=== PATIENT | female | born 1950 | race Caucasian/White ===

== ENCOUNTER 2016-12-20 05:44 | Day surgery (SDC) | payer BC ==
[2016-12-20] MEDS ORDERED: LACTATED RINGERS 1,000 ML ONE (06:05)
[2016-12-20] MEDS ORDERED: LIDOCAINE 1% 10 ML VIAL INJ ONE (09:00)
[2016-12-20] MEDS ORDERED: PROPOFOL 200 MG/20 ML VIAL IV ONE (09:00)
[2016-12-20] MEDS ORDERED: LACTATED RINGERS 1,000 ML IVS ONE (09:23)
--- NOTE | 2016-12-20 09:41 | OP ---
DATE OF PROCEDURE: 12/20/16 PREOPERATIVE DIAGNOSIS: 1. Gastroesophageal reflux disease and chronic cough. 2. History of serrated adenoma removed in 2014. POSTOPERATIVE DIAGNOSIS: 1. Hiatal hernia. 2. Diverticulosis. PROCEDURE: 1. Esophagogastroduodenoscopy. 2. Colonoscopy. SURGEON: Terrance Reyes MD. COMPLICATIONS: None apparent. BLOOD LOSS: None. MEDICATIONS: Monitored anesthesia care. DESCRIPTION OF PROCEDURE: Informed consent was obtained prior to sedation. The preprocedure cardiopulmonary assessment was satisfactory. The patient was placed in the left lateral decubitus position and was sedated. The tip of the Olympus esophagogastroduodenoscope was inserted in the oropharynx and carefully advanced through the cricopharyngeus into the esophageal lumen. The esophagus was unremarkable without any evidence of Ang's esophagus or esophagitis. The squamocolumnar junction was unremarkable. The patient had a small hiatal hernia. The stomach was otherwise nurse's on direct and retroflexed views. The antrum, body, fundus, cardia and incisura were examined and there was no significant mucosal pathology there.. The duodenum was unremarkable down to the third portion. The scope was then removed from the patient. The patient was rotated 180 degrees. A digital rectal exam was unremarkable. The tip of the Olympus colonoscope was inserted in the rectum and guided over to the cecum. The cecum was identified by locating the ileocecal valve and appendiceal orifice. Prep was good. The mucosa of the cecum, ascending colon, hepatic flexure, transverse colon, splenic flexure, descending colon and sigmoid colon was closely examined. Direct and retroflexed views of the rectum were obtained. No polyps were identified. The patient does have sigmoid diverticulosis. Otherwise, her colonoscopy was unremarkable. RECOMMENDATIONS: 1. Followup with Dr. Fraser. 2. Continue the patient's proton pump inhibitor for her reflux. It does seem to help the cough to some degree and so perhaps there is a reflux component to the cough. 3. She needs followup colonoscopy in 5 years to look for any new polyps. #[id number] cc: Trevor Fraser MD [facility]
[2016-12-20 11:54] VITALS: BP 145/88; TEMP 98; O2SAT 98
== END 2016-12-20 10:25 | disposition home or self-care (01) ==
LOC: AMB 05:44
PROVIDERS: ATTEND Internal Medicine Gastroenterology
DX: K44.9 Diaphragmatic hernia without obstruction or gangrene (principal); Z12.11 Encounter for screening for malignant neoplasm of colon; K57.30 Diverticulosis of large intestine without perforation or abscess without bleeding; K21.9 Gastro-esophageal reflux disease without esophagitis; Z86.010 Personal history of colon polyps; E11.65 Type 2 diabetes mellitus with hyperglycemia; I10 Essential (primary) hypertension; G47.30 Sleep apnea, unspecified; E66.9 Obesity, unspecified; Z79.84 Long term (current) use of oral hypoglycemic drugs; Z79.82 Long term (current) use of aspirin; Z79.899 Other long term (current) drug therapy; Z68.41 Body mass index [BMI] 40.0-44.9, adult
CPT/HCPCS: 00740; 43239; 45378; J3490; J7120

== ENCOUNTER → 2017-03-12 | Outpatient (CLI) | payer MEDICARE | END | disposition home or self-care (01) | LOC: GMAL 11:09 | PROVIDERS: ATTEND Family Medicine | DX: D53.9 Nutritional anemia, unspecified (principal); E55.9 Vitamin D deficiency, unspecified ==

== ENCOUNTER → 2017-06-05 | Outpatient (CLI) | payer MEDICARE | END | disposition home or self-care (01) | LOC: GMAL 10:59 | PROVIDERS: ATTEND Family Medicine | DX: D53.9 Nutritional anemia, unspecified (principal) ==

== ENCOUNTER → 2017-11-01 | Outpatient (CLI) | payer MEDICARE | LOC: GMAL 11:13 | PROVIDERS: ATTEND Family Medicine | DX: D50.9 Iron deficiency anemia, unspecified (principal) ==

== ENCOUNTER → 2017-11-07 | Outpatient (CLI) | payer MEDICARE ==
--- NOTE | 2017-11-09 15:12 | MAM ---
EXAM DESCRIPTION: 3D Screening BILATERAL : Digital Mammography. CLINICAL HISTORY: 67 years Female SCREENING . No complaints. No family history of breast cancer. Childbirth. Postmenopausal. No HRT. COMPARISON: 2-D digital screening bilateral study 03/01/2015.. No prior reports available. TECHNIQUE: Bilateral CC and MLO projection full-field images, 3-D tomosynthesis digital mammographic technique. CAD not utilized. FINDINGS: The breast parenchymal density pattern is: Heterogeneously dense breast tissue, which may obscure small masses. No skin thickening or nipple retraction. Bilateral axillary lymph nodes. Bilateral vascular calcifications. Bilateral solitary parenchymal calcifications. No new focal, stellate mass or density, focal asymmetry , and no suspicious microcalcifications bilaterally. Stable mammograms compared to prior study, taking into account differences in mammographic technique. IMPRESSION: BI-RADS CATEGORY: 2 - BENIGN FINDINGS. FOLLOW UP: Routine digital bilateral screening, one year interval from October 2017. Written communication explaining the IMPRESSION and follow-up, will be mailed to the patient and referring health care provider. According to the [employer], yearly mammograms are recommended starting at age 40 and continuing as long as a woman is in good health. Any breast change noted on a breast self-exam should be reported promptly to the patient's healthcare provider. Breast MRI is recommended for women with an approximately 20-25% or greater lifetime risk of breast cancer, including women with a strong family history of breast or ovarian cancer and women who have been treated for Hodgkin's disease. A negative mammographic report should not delay tissue diagnosis in patients with significant clinical history or physical findings. Extremely dense breast tissue limits the sensitivity of digital mammography. Electronically signed by: Wero Gonsales MD 11/09/2017 3:11 PM CDT
== END ==
LOC: MAMMO 09:10
PROVIDERS: ATTEND Family Medicine
DX: Z12.31 Encounter for screening mammogram for malignant neoplasm of breast (principal)

== ENCOUNTER → 2018-03-04 | Outpatient (CLI) | payer MEDICARE | LOC: GMAL 11:10 | PROVIDERS: ATTEND Family Medicine | DX: D50.9 Iron deficiency anemia, unspecified (principal) ==

== ENCOUNTER → 2018-06-03 | Outpatient (CLI) | payer MEDICARE | LOC: GMAL 10:19 | PROVIDERS: ATTEND Family Medicine | DX: E53.8 Deficiency of other specified B group vitamins (principal); R53.82 Chronic fatigue, unspecified; E55.9 Vitamin D deficiency, unspecified ==

== ENCOUNTER → 2018-09-25 | Outpatient (CLI) | payer MEDICARE | LOC: GMAL 11:21 | PROVIDERS: ATTEND Family Medicine | DX: D50.9 Iron deficiency anemia, unspecified (principal); I10 Essential (primary) hypertension; R73.01 Impaired fasting glucose; E78.2 Mixed hyperlipidemia ==

== ENCOUNTER → 2018-10-11 | Outpatient (CLI) | payer MEDICARE ==
--- NOTE | 2018-10-11 16:12 | US ---
US THYROID CLINICAL STATEMENT: THYROID NODULE. COMPARISON: None TECHNIQUE: Transcutaneous scanning, grayscale and Doppler modes. FINDINGS: Size right thyroid lobe: 5.8 x 1.9 x 1.7 cm Size left thyroid lobe: 4.2 x 1.2 x 1.2 cm Size isthmus: 0.37 cm Estimated total number of nodules greater than or equal to 1 cm: 2. Heterogeneous nodule. Nodule 1: Size: 2.1 x 1.2 x 0.9 cm Location: Right Mid Composition: solid or almost completely solid: 2 points Echogenicity: hypoechoic: 2 points Shape: wider than tall: 0 points Margins: smooth: 0 points Echogenic foci: peripheral calcifications: 2 points ACR Total Points: 6; ACR TI-RADS risk category: TR4 - moderately suspicious nodule. Nodule 2: Size: 1.0 x 1.0 x 0.6 cm Location: Right Mid Composition: solid or almost completely solid: 2 points Echogenicity: hypoechoic: 2 points Shape: wider than tall: 0 points Margins: smooth: 0 points Echogenic foci: none: 0 points ACR Total Points: 4; ACR TI-RADS risk category: TR4 - moderately suspicious nodule. Nodule 3: Size: 0.9 x 0.9 x 0.6 cm Location: Left Mid Composition: solid or almost completely solid: 2 points Echogenicity: hypoechoic: 2 points Shape: wider than tall: 0 points Margins: smooth: 0 points Echogenic foci: none: 0 points ACR Total Points: 4; ACR TI-RADS risk category: TR4 - moderately suspicious nodule. No dominant solid mass or distinct cyst in the surrounding soft tissues. No parenchymal edema or large calcifications. IMPRESSION: 1. Nodule 1: ACR TI-RADS 2017 Category TR4. Recommend: Ultrasound-guided fine needle aspiration. Recommendations based upon [employer] Best Practice recommendations and ACR TI-RADS 2017 guidelines. Please see below*. 2. Nodule 2: ACR TI-RADS 2017 Category TR4. Recommend: Follow-up ultrasound in 1 year. 3. Nodule 3: ACR TI-RADS 2017 Category TR4. Recommend: No further follow-up. 4. Soft tissue around the thyroid gland is unremarkable. *ACR TI-RADS 2017 Recommendations: TR1: No FNA or follow up TR2: No FNA or follow up TR3: FNA if >/= 2.5 cm, follow up if 1.5 - 2.4 cm in 1, 3, and 5 years TR4: FNA if >/= 1.5 cm, follow up if 1.0 - 1.4 cm in 1, 2, 3, and 5 years TR5: FNA if >/= 1.0 cm, follow up if 0.5 - 0.9 cm every year for 5 years ACR TI-RADS recommends that no more than two nodules with the highest ACR TI-RADS total point should be biopsied and no more than four nodules should be followed. These recommendations do not apply to patients with increased risk for thyroid cancer or patients with symptomatic thyroid disease. Electronically signed by: Wero Gonsales MD 10/11/2018 4:10 PM CDT
== END ==
LOC: US 09:00
PROVIDERS: ATTEND Family Medicine
DX: E04.8 Other specified nontoxic goiter (principal)

== ENCOUNTER → 2019-02-03 | Outpatient (CLI) | payer MEDICARE | LOC: GMAL 10:24 | PROVIDERS: ATTEND Family Medicine | DX: D50.9 Iron deficiency anemia, unspecified (principal); I10 Essential (primary) hypertension; E78.2 Mixed hyperlipidemia; E34.9 Endocrine disorder, unspecified ==

== ENCOUNTER → 2019-02-11 | Outpatient (CLI) | payer MEDICARE ==
--- NOTE | 2019-02-12 17:05 | MAM ---
EXAM DESCRIPTION: 3D Screening BILATERAL : Digital Mammography. CLINICAL HISTORY: 69 years Female SCREENING . No complaints. No personal or family history of breast cancer. Childbirth. Postmenopausal. No HRT. Lifetime risk of developing breast cancer (Tyrer-Cuzick model)(%): 5.4. COMPARISON: Bilateral screening digital breast tomosynthesis 11/07/2017. TECHNIQUE: Bilateral CC and MLO projection full-field images, digital tomosynthesis mammographic technique. Bilateral digital 2-D full-field MLO images. CAD not available for tomosynthesis or 2-D images. FINDINGS: The breast parenchymal density pattern is: Scattered areas of fibroglandular density. No skin thickening or nipple retraction. Bilateral nodular densities. Vascular calcifications. Bilateral solitary microcalcifications. Intramammary lymph nodes. No new focal, stellate mass or density, focal asymmetry , and no suspicious microcalcifications bilaterally. Stable mammograms compared to prior study. IMPRESSION: Benign exam. BIRAD CATEGORY: 2 BENIGN FINDINGS. RECOMMENDATIONS: FOLLOW UP: Routine digital bilateral mammographic screening, one year interval from February 2019. Written communication explaining the IMPRESSION and follow-up, will be mailed to the patient and referring health care provider. According to the [employer], yearly mammograms are recommended starting at age 40 and continuing as long as a woman is in good health. Any breast change noted on a breast self-exam should be reported promptly to the patient's healthcare provider. Breast MRI is recommended for women with an approximately 20-25% or greater lifetime risk of breast cancer, including women with a strong family history of breast or ovarian cancer and women who have been treated for Hodgkin's disease. A negative mammographic report should not delay tissue diagnosis in patients with significant clinical history or physical findings. Extremely dense breast tissue limits the sensitivity of digital mammography. Electronically signed by: Wero Gonsales MD 02/12/2019 5:03 PM CDT
== END ==
LOC: MAMMO 10:30
PROVIDERS: ATTEND Family Medicine
DX: Z12.31 Encounter for screening mammogram for malignant neoplasm of breast (principal)

== ENCOUNTER 2019-04-03 08:37 | Observation (INO) | payer MEDICARE ==
[2019-04-03] MEDS ORDERED: ONDANSETRON ODT 8 MG TAB SL ONE (08:56)
[2019-04-03] MEDS ORDERED: SODIUM CHLORIDE 0.9% 1000ML 1,000 ML IVS ONE (08:56)
--- NOTE | 2019-04-03 09:33 | CT ---
EXAM DESCRIPTION: Head CLINICAL HISTORY: near syncope, dizziness COMPARISON: None available TECHNIQUE: Contiguous axial images through the head were obtained without intravenous contrast administration. Sagittal and coronal reconstructions were reviewed. FINDINGS: No evidence of acute major vascular territorial infarct or intraparenchymal hemorrhage. No intra-axial or extra-axial fluid collections are identified. The ventricles and cisterns appear normal in caliber. The sella and suprasellar regions appear normal. The structures of the posterior fossa are intact. The globes are intact bilaterally. The visualized paranasal sinuses and mastoid air cells are well-aerated. Review of the bones demonstrates no gross instability. IMPRESSION: No CT evidence of acute intracranial process. This exam was performed according to our departmental dose-optimization program, which includes automated exposure control, adjustment of the mA and/or kV according to patient size and/or use of iterative reconstruction technique. Electronically signed by: Destiny Kiser MD 04/03/2019 9:31 AM [facility]
--- NOTE | 2019-04-03 09:33 | RAD ---
EXAM DESCRIPTION: Abdomen Series CLINICAL HISTORY: 69 years Female, nv, near syncope COMPARISON: None. TECHNIQUE: Acute abdominal series was performed. FINDINGS: CHEST: Trachea is midline. The cardiac silhouette is mildly enlarged in size. Lungs are clear with no acute consolidation. ABDOMEN: No abnormally dilated loops are identified to suggest bowel obstruction. No significant constipation. No abnormal calcifications. IMPRESSION: Mildly enlarged cardiac silhouette. Otherwise no acute abnormality is noted within the chest, abdomen radiographically. Electronically signed by: Destiny Kiser MD 04/03/2019 9:32 AM [facility]
--- NOTE | 2019-04-03 12:25 | ED.PDOC ---
History of Present Illness - General Chief Complaint: General Stated Complaint: dizzy, n/v/d Time Seen by Provider: 04/03/19 08:39 Source: patient Exam Limitations: no limitations - History of Present Illness Initial Comments: the patient is 69-year-old female presenting to the emergency room after a near syncopal episode while driving. She developed significant dizz iness along with an episode of nausea and vomiting followed by an episode of diarrhea. The patient gets significantly dizzy with sitting up here initially. She feels much better after liter of IV fluids. Of note, on telemetry, the patient will have a normal sinus rhythm in the 60s to 70s and then will drop off to a slower narrow complex rhythm that is fairly regular around 47 bpm. This slower rhythm usually only lasts a couple of seconds and then resumes a normal sinus rhythm. No focal neurological deficits. No actual syncope. No feeling of palpitations. No chest pain or shortness of breath. No fever. She reports she was feeling fine prior. She does take a blood pressure medication and a diuretic. Timing/Duration: 1/2 hour Severity: moderate Improving Factors: other - lying back Worsening Factors: movement Associated Symptoms: denies symptoms, malaise Allergies/Adverse Reactions: Allergies Azithromycin Allergy (Verified 04/03/19 08:48) Home Medications: Ambulatory Orders Calcium Citrate-Vitamin D [Citracal + D3 Maximum] 1 tab PO BID 06/25/13 Fish Oil [(None)] 1,200 mg PO BID 06/25/13 Multiple Vitamin [Multivitamins] 1 cap PO DAILY 06/25/13 Aspirin [Sarah Chewable Low Dose] 81 mg PO DAILY 06/30/13 Coenzyme Q10 (Ubidecarenone) [Coq-10] 200 mg PO DAILY 10/23/16 Magnesium Oxide 400 mg PO DAILY 10/23/16 Ranitidine HCl [Zantac 75] 150 mg PO DAILY 10/23/16 Hydrochlorothiazide 25 mg PO DAILY 04/03/19 Omeprazole 40 mg PO DAILY 04/03/19 Telmisartan 80 mg PO DAILY 04/03/19 Review of Systems - Review of Systems Constitutional: States: malaise EENTM: States: no symptoms reported Respiratory: States: no symptoms reported Cardiology: States: no symptoms reported Gastrointestinal/Abdominal: States: diarrhea, nausea, vomiting Genitourinary: States: no symptoms reported Musculoskeletal: States: no symptoms reported Skin: States: no symptoms reported Neurological: States: other - dizziness Endocrine: States: no symptoms reported All other Systems: No Change from Baseline Past Medical History (General) - Patient Medical History Hx Stroke: No Hx of COPD: No Hx Cardiac Disorders: No Hx Congestive Heart Failure: No Hx Hypertension: Yes Hx Thyroid Disease: No Hx Diabetes: No Hx MRSA: No Surgical History: tonsillectomy, other Family Medical History - Family History Mother Family History: No Known Physical Exam - Physical Exam General Appearance: Alert, Frail, Other - the patient does get near syncopal when sitting up initially. Eye Exam: bilateral normal Ears, Nose, Throat: hearing grossly normal, normal ENT inspection Neck: full range of motion, supple Respiratory: lungs clear, normal breath sounds, no respiratory distress, no accessory muscle use Cardiovascular/Chest: normal peripheral pulses, regular rate, rhythm, no edema, other - see history of present illness Peripheral Pulses: radial,right: 2+, radial,left: 2+ Gastrointestinal/Abdominal: non tender, soft Rectal Exam: deferred Back Exam: no CVA tenderness, no vertebral tenderness Extremity: non-tender, normal inspection, no pedal edema, normal capillary refill Neurologic: block sealer II-XII nml as tested, alert, normal mood/affect, oriented x 3 Skin Exam: normal color Comments: Vital Signs - 24 hr 04/03/19 04/03/19 04/03/19 08:42 09:37 10:00 Temperature 96.2 F L Pulse Rate [ 70 59 L 67 left brachial] Respiratory 22 20 20 Rate Blood Pressure 125/67 130/76 130/76 [left brachial] O2 Sat by Pulse 98 99 99 Oximetry 04/03/19 11:00 Temperature Pulse Rate [ 81 left brachial] Respiratory 20 Rate Blood Pressure 143/71 [left brachial] O2 Sat by Pulse 97 Oximetry Progress - Progress Progress: 04/03/19 12:35 the patient is a 69-year-old female presenting after a near syncopal episode with associated nausea and vomiting and 1 episode of diarrhea. The patient does have significant dehydration and has responded very significantly to a liter of IV fluids. Her hydrochlorothiazide dose may need to be decreased in the coming weeks. Additionally the patient appears to be having episodes on telemetry of having brief runs of what is likely a junctional escape rhythm. The patient will need to be monitored more overnight. I would also recommend repeating cardiac enzymes over the next 24 hours to make sure there are no surprises. She is not exhibiting any symptoms of chest pain or angina and her EKG is reassuring. Head CT is reassuring. Laboratory work otherwise appears to be reassuring as well. Admit for monitoring over the next 24 hours. - Results/Orders Results/Orders: EKG shows Q waves in inferior leads. No definitive ST segments or T-wave changes indicative of acute ischemia. Normal axis. Normal R-wave progression. Borderline prolonged QT interval. Laboratory Tests 04/03/19 04/03/19 04/03/19 09:00 09:00 09:00 WBC 5.5 RBC 3.45 L Hgb 10.7 L Hct 31.3 L MCV 90.5 MCH 30.9 MCHC 34.2 RDW 13.4 Plt Count 248 MPV 7.4 Absolute Neuts (auto) 3.90 Absolute Lymphs (auto) 1.10 Absolute Monos (auto) 0.40 Absolute Eos (auto) 0.10 Absolute Basos (auto) 0.00 Neutrophils % 71.3 Lymphocytes % 20.7 Monocytes % 6.4 Eosinophils % 1.3 Basophils % 0.3 PT 10.1 INR 1.01 PTT (SP) 22.1 Sodium 131 L Potassium 3.7 Chloride 95 L Carbon Dioxide 20 L Anion Gap 19.7 H BUN 23 H Creatinine 0.94 BUN/Creatinine Ratio 24.5 H Random Glucose 181 H Serum Osmolality 270.9 L Lactic Acid Calcium 9.3 Magnesium Total Bilirubin 0.7 AST 21 ALT 22 Alkaline Phosphatase 66 Creatine Kinase 74 CK-MB (CK-2) 1.4 CK-MB (CK-2) % Not Reportable Troponin I < 0.02 B-Natriuretic Peptide 45.6 Serum Total Protein 6.9 Albumin 3.9 Globulin 3.0 Albumin/Globulin Ratio 1.3 Amylase 48 Lipase TSH Urine Color Urine Appearance Urine pH Ur Specific [place] Urine Protein Urine Glucose (UA) Urine Ketones Urine Blood Urine Nitrite Urine Bilirubin Urine Urobilinogen Ur Leukocyte Esterase Urine RBC Urine WBC Ur Epithelial Cells Urine Bacteria 04/03/19 04/03/19 04/03/19 09:00 09:00 11:00 WBC RBC Hgb Hct MCV MCH MCHC RDW Plt Count MPV Absolute Neuts (auto) Absolute Lymphs (auto) Absolute Monos (auto) Absolute Eos (auto) Absolute Basos (auto) Neutrophils % Lymphocytes % Monocytes % Eosinophils % Basophils % PT INR PTT (SP) Sodium Potassium Chloride Carbon Dioxide Anion Gap BUN Creatinine BUN/Creatinine Ratio Random Glucose Serum Osmolality Lactic Acid 2.0 Calcium Magnesium 1.7 L Total Bilirubin AST ALT Alkaline Phosphatase Creatine Kinase CK-MB (CK-2) CK-MB (CK-2) % Troponin I B-Natriuretic Peptide Serum Total Protein Albumin Globulin Albumin/Globulin Ratio Amylase Lipase 27 TSH 1.00 Urine Color Yellow Urine Appearance Clear Urine pH 7.0 Ur Specific [place] 1.020 Urine Protein Negative Urine Glucose (UA) Negative Urine Ketones 15 H Urine Blood Negative Urine Nitrite Negative Urine Bilirubin Negative Urine Urobilinogen 0.2 Ur Leukocyte Esterase Negative Urine RBC 0-1 Urine WBC 3-5 H Ur Epithelial Cells 0-1 Urine Bacteria Rare head CT shows no acute intracranial pathology. acute abdominal series shows no acute pathology. Departure - Departure Clinical Impression: Near syncope, Dehydration, Orthostasis, Sick sinus syndrome Arrhythmia Qualifiers: Atrial fibrillation type: paroxysmal Disposition: Admit Patient Condition: Fair Departure Forms: ED Discharge - Pt. Copy, Patient Portal Self Enrollment Referrals: Trevor Fraser III, MD [Primary Care Provider] - 1-2 Weeks Home Medications: Ambulatory Orders Calcium Citrate-Vitamin D [Citracal + D3 Maximum] 1 tab PO BID 06/25/13 Fish Oil [(None)] 1,200 mg PO BID 06/25/13 Multiple Vitamin [Multivitamins] 1 cap PO DAILY 06/25/13 Aspirin [Sarah Chewable Low Dose] 81 mg PO DAILY 06/30/13 Coenzyme Q10 (Ubidecarenone) [Coq-10] 200 mg PO DAILY 10/23/16 Magnesium Oxide 400 mg PO DAILY 10/23/16 Ranitidine HCl [Zantac 75] 150 mg PO DAILY 10/23/16 Hydrochlorothiazide 25 mg PO DAILY 04/03/19 Omeprazole 40 mg PO DAILY 04/03/19 Telmisartan 80 mg PO DAILY 04/03/19 Decision To Admit - Decistion To Admit Decision to Admit Reason: Medical Nature Decision to Admit Date: 04/03/19 Decision to Admit Time: 12:38
--- NOTE | 2019-04-03 12:56 | HP ---
SUPERVISING PHYSICIAN: Martin Nix MD CHIEF COMPLAINT: Nausea, vomiting, diarrhea, generalized weakness and near syncopal episode. HISTORY OF PRESENT ILLNESS: This is a 69-year-old female patient who presented to the Emergency Room after a near syncopal episode while driving. She was in the [place] area and had a sudden onset of nausea and vomiting. She also had one episode of diarrhea and she vomited twice prior to coming to the Emergency Room and then once in the Emergency Room. She felt very queasy and dizzy. Initially in the Emergency Room, she was unable to sit up because she got very dizzy. She received a liter of IV fluids. Her initial vital signs showed a temperature of 96.2, heart rate 70, blood pressure 125/67, respiratory rate 22, O2 saturation 98% on room air. Laboratory studies were done. Her CBC was unremarkable. Her CMP showed sodium 131, potassium 3.7, chloride 95, carbon dioxide 20, BUN 20, creatinine 0.94, glucose 181. Serum osmolality 270.9, magnesium 1.7. Troponin negative. Liver enzymes negative. TSH 1, lipase 27. Abdominal x-ray as well as chest x-ray showed a mildly enlarged cardiac silhouette, but otherwise no abnormalities of the chest or abdomen. Head CT showed no evidence of an acute intracranial process. After she received a liter of fluids, she was feeling much better, but Dr. Colin Espino, the Emergency Room doctor, noticed on her threat monitoring analyst that she had short 2 to 3 second intervals of heart rate dropping from normal sinus rhythm in the 60s and 70s into narrow complex rhythm that was fairly regular in the low to mid 40s. The slower rhythm only lasts several seconds and then resumed to her normal sinus rhythm. She was placed in observation in the hospital. PAST MEDICAL HISTORY: 1. Obstructive sleep apnea. She wears BiPAP at night. 2. Thyroid nodule. 3. Hyperlipidemia. 4. Hypertension. 5. Gastroesophageal reflux disease. 6. Headaches, most likely allergy in origin. PAST SURGICAL HISTORY: 1. Cholecystectomy. 2. . 3. Tonsillectomy. 4. Left knee arthroscopy. OUTPATIENT MEDICATIONS: Per the EMR and awaiting verification. FAMILY HISTORY: Positive for cerebrovascular accident, lung cancer, hypertension, hyperlipidemia. SOCIAL HISTORY: She lives in [place]. She is . She has 2 children. She denies any tobacco, ETOH or illicit drug use. REVIEW OF SYSTEMS: GENERAL: Positive for fatigue. Negative for fever or weight changes. HEENT: Negative for sinus symptoms, ear pain, vision changes or sore throat. RESPIRATORY: Negative for wheezing, coughing or shortness of breath. CARDIAC: Negative for chest pain, palpitations or tachycardia. GASTROINTESTINAL: As per history of present illness. GENITOURINARY: Negative for hematuria, dysuria or polyuria. MUSCULOSKELETAL: Negative for arthralgias, myalgias. SKIN: Negative for lesions or rashes. NEUROLOGIC: Positive for dizziness, weakness and sinus headaches. Negative for seizures. PHYSICAL EXAMINATION: VITAL SIGNS: Temperature 97.6. Heart rate 68. Blood pressure 137/80. Respiratory rate 20. O2 saturation 95% on room air. GENERAL: This is a 69-year-old female patient sitting up in her hospital bed. She is in no acute distress. HEENT: Normocephalic, atraumatic. Pupils are equal and reactive. Oropharynx is clear. NECK: Supple without mass. RESPIRATORY: Essentially clear to auscultation bilaterally. CARDIOVASCULAR: Regular rate and rhythm, sinus rhythm on the air sampling and monitoring. GASTROINTESTINAL: Abdomen is soft, nondistended, nontender. Bowel sounds are positive. EXTREMITIES: No cyanosis, clubbing or edema. NEUROLOGIC: Awake, alert and oriented times three. Cranial nerves II-XII are grossly intact and normal as tested. SKIN: Warm and dry. LABORATORY: Labs and films are as per history of present illness. IMPRESSION: 1. Near syncopal episode, most likely secondary to gastroenteritis and dehydration, but a contributing factor may be her bradycardic episodes. 2. Two to three second episodes of bradycardia on the air sampling and monitoring with a heart rate that drops into the 40s and back to normal sinus rhythm within a few seconds. 3. Gastroenteritis with nausea, vomiting and diarrhea. 4. Obstructive sleep apnea on BiPAP. 5. Hyperlipidemia on medications. 6. Hypertension. 7. Gastroesophageal reflux disease. PLAN: The patient has been placed in observation. We will give her some gentle fluids overnight and monitor her cardiac rhythm. She also has antiemetics as well as some ibuprofen for her headaches. Her home medications have been restarted. I have given her some magnesium supplementation. I will also check her lab in the morning. Hopefully her syncopal episode was due to her dehydration and gastroenteritis, but she will most likely go home on a air sampling and monitoring for a week or so with close followup with her primary care physician, Dr. Fraser. She is on Lovenox for DVT prophylaxis. We will continue to monitor the patient closely and follow as needed. #[id number] [facility]
[2019-04-03] MEDS ORDERED: SODIUM CHLORIDE 0.9% (FLUSH) 10 ML SYG IV PRN (13:38)
[2019-04-03] MEDS ORDERED: KCL 20MEQ/D5 1/2NS 1,000 ML IVS ONE (13:41)
[2019-04-03] MEDS ORDERED: IV SET AND CAP CHANGE INJ INJ SCH (14:00)
[2019-04-03] MEDS ORDERED: MAGNESIUM SULFATE PREMIX 2GM 2 GM in PREMIX BAG 1 BAG IVPB ONE (18:38)
[2019-04-03] MEDS ORDERED: MAGNESIUM SULFATE PREMIX 2GM 50 ML IVPB ONE (18:58)
[2019-04-03] MEDS ORDERED: OMEPRAZOLE CAP 20 MG CAP ONE (20:02)
[2019-04-03] MEDS: IBUPROFEN 200 MG TAB PO PRN (20:42)
[2019-04-03] MEDS: SODIUM CHLORIDE 0.9% (FLUSH) 10 ML SYG IV SCH (20:49)
[2019-04-03] MEDS ORDERED: ENOXAPARIN SODIUM 40 MG/0.4 ML SYG SUBCU SCH (21:00)
[2019-04-04] MEDS: IBUPROFEN 200 MG TAB PO PRN (03:32)
[2019-04-04] MEDS ORDERED: OMEPRAZOLE CAP 20 MG CAP PO SCH (06:30)
[2019-04-04 08:08] VITALS: BP 121/68; TEMP 97.4
[2019-04-04] MEDS ORDERED: TELMISARTAN 80 MG PO SCH (09:00)
[2019-04-04] MEDS ORDERED: NON-FORMULARY MEDICATION 1 EA MIS (Omeprazole [Omeprazole] 40 MG) PO SCH (09:00)
[2019-04-04] MEDS ORDERED: RANITIDINE HCL 150 MG PO SCH (09:00)
[2019-04-04] MEDS ORDERED: ASPIRIN (CHEWABLE) 81 MG TAB PO SCH (09:00)
[2019-04-04] MEDS: SODIUM CHLORIDE 0.9% (FLUSH) 10 ML SYG IV SCH (09:13)
[2019-04-04 11:19] VITALS: O2SAT 98
--- NOTE | 2019-04-04 14:04 | DS ---
SUPERVISING PHYSICIAN: Martin Nix MD DISCHARGE DIAGNOSES: 1. Near syncopal episode, most likely secondary to gastroenteritis and dehydration, but a contributing factor may be her bradycardic episodes. 2. Two to three second episodes of bradycardia on the monitoring specialist with a heart rate that drops into the 40s and back to normal sinus rhythm within a few seconds. 3. Gastroenteritis with nausea, vomiting and diarrhea. 4. Obstructive sleep apnea on BiPAP. 5. Hyperlipidemia on medications. 6. Hypertension. 7. Gastroesophageal reflux disease. HISTORY OF PRESENT ILLNESS: This is a 69-year-old female patient who presented to the Emergency Room after a near-syncopal episode while driving. She was in the [facility] and had a sudden onset of nausea and vomiting. She also had one episode of diarrhea and she vomited twice prior to coming to the Emergency Room and then once in the Emergency Room. She felt very queasy, dizzy and diaphoretic. Initially in the Emergency Room, she was unable to sit up because she got very dizzy. She received a liter of IV fluids. Her initial vital signs showed a temperature of 96.2, heart rate 70, blood pressure 125/67, respiratory rate 22, oxygen saturation 98% on room air. Laboratory studies were done. Her CBC was unremarkable. Her CMP showed sodium 131, potassium 3.7, chloride 95, carbon dioxide 20, BUN 20, creatinine 0.94, glucose 181. Serum osmolality 270.9, magnesium 1.7. Troponin negative. Liver enzymes were negative. TSH 1, lipase 27. Abdominal x-ray as well as chest x-ray showed a mildly enlarged cardiac silhouette but otherwise no abnormalities of the chest or abdomen. Head CT showed no evidence of an acute intracranial process. After she received a liter of fluids, she was feeling much better, but Dr. Colin Espino, the Emergency Room doctor, noticed on her bus driver/monitor that she had short 2 to 3 second intervals of heart rate dropping from normal sinus rhythm in the 60s and 70s into a narrow complex rhythm that was fairly regular that dropped to the low to mid 40s. The slower rhythm only lasts several seconds and then resumed to her normal sinus rhythm. She was placed in observation in the hospital. HOSPITAL COURSE: She was given gentle IV fluids overnight and her cardiac rhythms were monitored. She was not up moving around much but her heart rate was only reported as low as the upper 50s. She did have a mild headache and was given ibuprofen for that. Her home medications were restarted and she was placed on Lovenox for DVT prophylaxis. Lab was checked this morning and there were no further complaints of syncope, nausea or vomiting or diarrhea. She will be discharged home today in stable condition. Followup labs showed her CBC was unremarkable. Her metabolic panel was unremarkable with the exception of her total protein was slightly low at 6 and her serum osmolality was slightly improved but still low at 273.8. Magnesium did improve to 6.2. Radiology reports are as per the history of present illness. DISCHARGE PLAN: The patient will be discharged home in stable condition. She is to resume her previous activity and diet. She is also to resume her home medications and she has a followup appointment with Dr. Fraser on 04/15/19 at 9:15 AM. An echocardiogram was ordered and at her followup appointment, Dr. Fraser can review those results as there are no results available. I have also ordered 2 weeks of outpatient cardiac monitoring and that can be reviewed at that time as well. Hopefully, her syncopal episodes were due to a mild gastroenteritis and dehydration and not a bradycardiac event. She is to return to the hospital or followup with Dr. Fraser for any problems or complications. DISCHARGE MEDICATIONS: 1. Multivitamin. 2. Fish oil. 3. Calcium, vitamin D. 4. Aspirin. 5 Ranitidine. 6. Coenzymes Q10. 7. Magnesium oxide. 8. Telmisartan. 9. Hydrochlorothiazide. 10. Omeprazole. 11. Potassium. #[id number] [facility]
== END 2019-04-04 11:20 | disposition home or self-care (01) ==
LOC: ER 08:37 → MS 12:52
PROVIDERS: ADMIT Nurse Practitioner Acute Care; ATTEND Nurse Practitioner Acute Care
DX: R55 Syncope and collapse (principal); R00.1 Bradycardia, unspecified; K52.9 Noninfective gastroenteritis and colitis, unspecified; E86.0 Dehydration; G47.33 Obstructive sleep apnea (adult) (pediatric); E78.5 Hyperlipidemia, unspecified; I10 Essential (primary) hypertension; K21.9 Gastro-esophageal reflux disease without esophagitis; E83.42 Hypomagnesemia; R51 Headache; I48.0 Paroxysmal atrial fibrillation; Z99.89 Dependence on other enabling machines and devices; Z79.82 Long term (current) use of aspirin; Z79.899 Other long term (current) drug therapy; Z90.49 Acquired absence of other specified parts of digestive tract; Z82.3 Family history of stroke; Z80.1 Family history of malignant neoplasm of trachea, bronchus and lung; Z82.49 Family history of ischemic heart disease and other diseases of the circulatory system; Z83.438 Family history of other disorder of lipoprotein metabolism and other lipidemia
CPT/HCPCS: 96361; 96366; 96367; 96365; 96372; J7030; J1650; J3475; 82553; 80053 ×2; 36415 ×3; 82150; 81001; 85025 ×2; 82550; 83690; 83735 ×2; 85730; 85610; 84443; 84484; 83880; 83605; 74019; 70450; 94760 ×3; 93225; 99285; 93306; 93005; G0378

== ENCOUNTER → 2020-03-29 | Outpatient (CLI) | payer MEDICARE ==
--- NOTE | 2020-03-30 15:09 | MAM ---
EXAM DESCRIPTION: 3D Screening BILATERAL : Digital Mammography. CLINICAL HISTORY: 70 years Female SCREENING . No complaints. No personal or family history of breast cancer. Menarche age 17. Childbirth age 26. Menopause age 52. No HRT. Lifetime risk of developing breast cancer (Tyrer-Cuzick model)(%): 4.6. COMPARISON: Bilateral screening digital breast tomosynthesis February 2019 and October 2017. TECHNIQUE: Bilateral CC and MLO projection full-field images, digital tomosynthesis mammographic technique. Bilateral digital 2-D full-field MLO images. CAD available for 2-D images. FINDINGS: The breast parenchymal density pattern is: Scattered areas of fibroglandular density. No skin thickening or nipple retraction. Vascular calcifications. Solitary microcalcifications. Nodular-type fibroglandular tissues bilaterally. Multiple intramammary lymph nodes. No new focal, stellate mass or density, focal asymmetry , and no suspicious microcalcifications bilaterally. Stable mammograms compared to prior study. IMPRESSION: Benign exam. BIRAD CATEGORY: 2 BENIGN FINDINGS. RECOMMENDATIONS: FOLLOW UP: Routine digital bilateral mammographic screening, one year interval from March 2020. Written communication explaining the IMPRESSION and follow-up, will be mailed to the patient and referring health care provider. According to the [employer], yearly mammograms are recommended starting at age 40 and continuing as long as a woman is in good health. Any breast change noted on a breast self-exam should be reported promptly to the patient's healthcare provider. Breast MRI is recommended for women with an approximately 20-25% or greater lifetime risk of breast cancer, including women with a strong family history of breast or ovarian cancer and women who have been treated for Hodgkin's disease. A negative mammographic report should not delay tissue diagnosis in patients with significant clinical history or physical findings. Extremely dense breast tissue limits the sensitivity of digital mammography. Electronically signed by: Wero Gonsales MD 03/30/2020 3:08 PM [employer]
== END ==
LOC: MAMMO 08:30
PROVIDERS: ATTEND Family Medicine
DX: Z12.31 Encounter for screening mammogram for malignant neoplasm of breast (principal)

== ENCOUNTER 2020-04-16 10:27 | Inpatient (IN) | payer MEDICARE ==
[2020-04-16] MEDS ORDERED: SODIUM CHLORIDE 0.9% 1000ML 1,000 ML IVS ONE ×2 (10:34→16:20)
--- NOTE | 2020-04-16 10:34 | ED.PDOC ---
History of Present Illness - General Time Seen by Provider: 04/16/20 10:32 Source: patient - History of Present Illness Initial Comments: 70 yo female who presents with chief complaint of nausea and vomiting. Patient reports she has been ill for about 12 days now. She tested positive for COVID- 19 1 week ago. She reports initial symptoms of malaise, cough, diarrhea. However in the last 2 to 3 days her primary symptoms have been constant nausea with poor appetite and intermittent nonbloody nonbilious emesis. She was seen 2 days ago at [place] [facility] where she received some IV fluids and was sent home on a Z-Ryan and prednisone. She reports little relief with this therapy. Dr. Fraser has set up outpatient infusion of BAM, and patient was receiving her first dose this afternoon when she suddenly became nauseous and had a couple episodes of vomiting so she was sent over to the ED. She was given Phenergan 25 mg IV prior to being sent over and reports nausea is much better. She reports feeling generally weak and poor appetite, moderate severity. Denies any fevers, chills, chest pain, dyspnea, abdominal pain, urinary symptoms, leg swelling. Reports intermittent dry cough. Allergies/Adverse Reactions: Allergies Azithromycin Allergy (Verified 04/16/20 14:03) Home Medications: Ambulatory Orders Calcium Citrate-Vitamin D [Citracal + D3 Maximum 315-250 mg-Unit] 1 tab PO BID 06/25/13 Fish Oil 2 tablet PO DAILY 06/25/13 Multiple Vitamin [Multivitamins] 1 cap PO DAILY 06/25/13 Aspirin [Sarah Chewable Low Dose] 81 mg PO BEDTIME 06/30/13 Coenzyme Q10 (Ubidecarenone) [Coq-10] 200 mg PO DAILY 10/23/16 Magnesium Oxide 400 mg PO DAILY 10/23/16 Ranitidine HCl [Zantac 75] 150 mg PO BEDTIME 10/23/16 Hydrochlorothiazide 25 mg PO DAILY 04/03/19 Omeprazole 40 mg PO DAILY 04/03/19 Potassium 99 mg PO DAILY 04/03/19 Telmisartan 80 mg PO DAILY 04/03/19 Review of Systems - Review of Systems Review of Systems: 04/16/20 11:33 as per HPI All other Systems: Reviewed and Negative Past Medical History (General) - Patient Medical History Hx Seizures: No Hx Stroke: No Hx Asthma: No Hx of COPD: No Hx Cardiac Disorders: No Hx Congestive Heart Failure: No Hx Pacemaker: No Hx Hypertension: Yes Hx Thyroid Disease: No Hx Diabetes: No Hx MRSA: No - Social History Hx Alcohol Use: No Hx Substance Use: No Hx Physical Abuse: No Hx Emotional Abuse: No Family Medical History - Family History Mother Family History: No Known Physical Exam - Physical Exam General Appearance: Alert, Comfortable, No apparent distress Eye Exam: bilateral normal Ears, Nose, Throat: other - Slight dry oral mucosa Neck: non-tender, full range of motion Respiratory: no respiratory distress, no accessory muscle use, rales - bibasilar crackles w/o wheezing or rhonchi Cardiovascular/Chest: normal peripheral pulses, regular rate, rhythm, no edema, no gallop, no JVD, no murmur Peripheral Pulses: radial,right: 2+, radial,left: 2+ Gastrointestinal/Abdominal: non tender, soft, no organomegaly Back Exam: normal inspection, no CVA tenderness, no vertebral tenderness Extremity: normal range of motion, non-tender, normal inspection Neurologic: residential property consultant II-XII nml as tested, no motor/sensory deficits, alert, normal mood/affect, oriented x 3 Skin Exam: normal color, warm/dry Progress - Progress Progress: 04/16/20 11:34 N/V, COVID-19 -suspect due to COVID-19 infection. Consider also gastroenteritis, UTI, electrolyte derangement, sepsis, other -Obtain Covid panel -Place peripheral IV, 1 L normal saline bolus, as needed antiemetics, consider admission 04/16/20 12:40 -Labs revealed moderate hyponatremia with serum Na 124. Otherwise labs c/w mild-moderate COVID-19 infection - WBC 11,200 with 84% segs, no bands, slightly elevated CRP & D-dimer, BUN 25, Cr 1.3. Mg 1.7. Trop <0.02. -Discussed findings with pt & her daughter - concern for acute hyponatremia due to dehydration, COVID-19 infection. Advised admission for IV fluids, COVID-19 treatment. They are in agreement. -Nuzhat Danny accepts for admission for hyponatremia, COVID-19, dehydration, hypomagnesemia Ash Salinas MD Billing #[id number] 04/16/20 10:33 IV Care:Saline Lock per Protoc STAT Isolation:Airborne ONCE Telemetry STAT 04/16/20 10:45 EKG STAT Oxygen STAT Pulse Ox, Continuous Monitoring STAT 04/16/20 12:40 Magnesium Sulfate Premix 2Gm 2 gm Premix Bag 1 bag IVPB ONCE 04/17/20 10:45 Oxygen STAT Pulse Ox, Continuous Monitoring STAT 04/18/20 10:45 Pulse Ox, Continuous Monitoring STAT Laboratory Results - last 24 hr 04/16/20 04/16/20 04/16/20 10:47 10:47 10:47 WBC 11.2 H RBC 3.93 L Hgb 12.4 Hct 34.8 L MCV 88.4 MCH 31.5 H MCHC 35.6 RDW 13.1 Plt Count 203 MPV 7.1 L Absolute Neuts (auto) 9.50 H Absolute Lymphs (auto) 0.60 L Absolute Monos (auto) 1.10 H Absolute Eos (auto) 0.00 Absolute Basos (auto) 0.00 Neutrophils % 84.7 H Lymphocytes % 5.7 L Monocytes % 9.4 H Eosinophils % 0.0 L Basophils % 0.2 PTT (SP) 24.0 D-Dimer, Quantitative 876.0 H* Sodium 124 L Potassium 3.4 L Chloride 88 L Carbon Dioxide 23 Anion Gap 16.4 BUN 25 H Creatinine 1.30 BUN/Creatinine Ratio 19.2 Random Glucose 114 H Serum Osmolality 254.9 L* Calcium 8.5 Magnesium 1.7 L Total Bilirubin 0.8 AST 24 ALT 27 Alkaline Phosphatase 89 LD Total 112 Creatine Kinase 68 Troponin I C-Reactive Protein 3.7 H B-Natriuretic Peptide 163.0 H Serum Total Protein 7.0 Albumin 3.5 Globulin 3.5 Albumin/Globulin Ratio 1.0 L 04/16/20 10:47 WBC RBC Hgb Hct MCV MCH MCHC RDW Plt Count MPV Absolute Neuts (auto) Absolute Lymphs (auto) Absolute Monos (auto) Absolute Eos (auto) Absolute Basos (auto) Neutrophils % Lymphocytes % Monocytes % Eosinophils % Basophils % PTT (SP) D-Dimer, Quantitative Sodium Potassium Chloride Carbon Dioxide Anion Gap BUN Creatinine BUN/Creatinine Ratio Random Glucose Serum Osmolality Calcium Magnesium Total Bilirubin AST ALT Alkaline Phosphatase LD Total Creatine Kinase Troponin I < 0.02 C-Reactive Protein B-Natriuretic Peptide Serum Total Protein Albumin Globulin Albumin/Globulin Ratio - EKG/XRAY/CT EKG: Sinus - Normal sinus rhythm, heart rate 90, no ST elevations or Q waves noted, axis normal, intervals normal, compared to 04/03/2019 EKG appears unchanged XRAY: chest - Bilateral groundglass opacities noted consistent with COVID-19 infection per my read Departure - Departure Clinical Impression: COVID-19, Hyponatremia, Dehydration, Hypomagnesemia Time of Disposition: 12:41 Disposition: Discharge to Home or Self Care Condition: Fair Home Medications: Ambulatory Orders Calcium Citrate-Vitamin D [Citracal + D3 Maximum 315-250 mg-Unit] 1 tab PO BID 06/25/13 Fish Oil 2 tablet PO DAILY 06/25/13 Multiple Vitamin [Multivitamins] 1 cap PO DAILY 06/25/13 Aspirin [Sarah Chewable Low Dose] 81 mg PO BEDTIME 06/30/13 Coenzyme Q10 (Ubidecarenone) [Coq-10] 200 mg PO DAILY 10/23/16 Magnesium Oxide 400 mg PO DAILY 10/23/16 Ranitidine HCl [Zantac 75] 150 mg PO BEDTIME 10/23/16 Hydrochlorothiazide 25 mg PO DAILY 04/03/19 Omeprazole 40 mg PO DAILY 04/03/19 Potassium 99 mg PO DAILY 04/03/19 Telmisartan 80 mg PO DAILY 04/03/19 Decision To Admit - Decistion To Admit Decision to Admit Reason: Admit from ER Decision to Admit Date: 04/16/20 Decision to Admit Time: 12:42
--- NOTE | 2020-04-16 11:08 | RAD ---
EXAM DESCRIPTION: Chest,1 View CLINICAL HISTORY: 70 years Female, dyspnea, COVID-19+ COMPARISON: 02/05/2009 TECHNIQUE: Single view radiograph of the chest. IMPRESSION: Normal size cardiac silhouette. Partially calcified aorta. Perihilar fullness and airspace opacities within the left midlung and both lung bases. This probably represents pulmonary edema versus atypical pneumonia or viral infection. No pleural effusion or pneumothorax. Thoracic spondylosis. Electronically signed by: Paulie Julian MD 04/16/2020 11:07 AM [facility]
[2020-04-16] MEDS ORDERED: MAGNESIUM SULFATE PREMIX 2GM 2 GM in PREMIX BAG 1 BAG IVPB ONE (12:40)
--- NOTE | 2020-04-16 13:32 | HP ---
SUPERVISING PHYSICIAN: ANA WORLEY MD CHIEF COMPLAINT: Nausea, vomiting, diarrhea, Covid.. HISTORY OF PRESENT ILLNESS: This is a 70-year-old female patient who presented to the Emergency Room with chief complaint of nausea and vomiting. She had been diagnosed with Covid-19 about a week ago and her primary care physician, Dr. Fraser had set her up for a monoclonal antibody infusion. She had had a poor appetite with nausea and vomiting and some intermittent diarrhea during her infusion. She became suddenly extremely nauseated, had several bouts of emesis. She was sent to the Emergency Room. She was given some Phenergan and fluids. Her initial vital signs were temperature of 99, heart rate 94, blood pressure 149/79, respiratory rate 24, O2 saturation 95% on room air. Laboratory studies were done. WBC 11/2 with hemoglobin 12.4, hematocrit 34.8. She had a left shift on her differential. D-dimer 876. Sodium low at 124, potassium 3.4, chloride 88, BUN 25, creatinine 1.3. Serum osmolality 254.9, magnesium 1.7, C- reactive protein 3.7, BNP 163. Chest x-ray showed normal size cardiac silhouette, partial and calcified aorta, perihilar fullness and airspace opacities within the left mid lung and both lung bases, probably represents pulmonary edema versus atypical pneumonia or viral obstruction. No pleural effusion or pneumothorax and thoracic spondylosis. She was also given some fluids and admitted to the hospital for Covid-19 as well as hyponatremia. PAST MEDICAL HISTORY: 1. Obstructive sleep apnea. She has BiPAP at home. 2. Thyroid nodule. 3. Hyperlipidemia. 4. Hypertension. 5. Gastroesophageal reflux disease. 6. Headaches.. PAST SURGICAL HISTORY: 1. Cholecystectomy. 2. . 3. Tonsillectomy. 4. Left knee arthroscopy. OUTPATIENT MEDICATIONS: Per the EMR and awaiting verification. FAMILY HISTORY: Positive for cerebrovascular accident, lung cancer, hypertension, hyperlipidemia. SOCIAL HISTORY: She lives in [place]. She is . She has 2 children. She denies any tobacco, ETOH or illicit drug use. REVIEW OF SYSTEMS: GENERAL: Negative for fatigue, fever, or weight changes. HEENT: Negative for sinus symptoms, ear pain, vision changes or sore throat. RESPIRATORY: Negative for wheezing or shortness of breath. Positive for coughing. CARDIAC: Negative for chest pain, palpitations or tachycardia. GASTROINTESTINAL: As per history of present illness. GENITOURINARY: Negative for hematuria, dysuria or polyuria. MUSCULOSKELETAL: Negative for arthralgias, myalgias. SKIN: Negative for lesions or rashes. NEUROLOGIC: Negative for dizziness, headaches or seizures. PHYSICAL EXAMINATION: VITAL SIGNS: Temperature 96.9. Heart rate 132. Blood pressure 171/71. Respiratory rate 20. O2 saturation 95% on room air. GENERAL: This is a 70-year-old female patient lying in her hospital bed. She is in no acute distress. HEENT: Normocephalic, atraumatic. Pupils are equal and reactive. Oropharynx is clear. NECK: Supple with full range of motion. RESPIRATORY: Essentially clear to auscultation bilaterally. CARDIOVASCULAR: Tachycardiac rate, regular rhythm. GASTROINTESTINAL: Abdomen is soft, diffusely tender. Bowel sounds are positive. EXTREMITIES: No cyanosis, clubbing or edema. NEUROLOGIC: Alert and oriented times three. Cranial nerves II-XII are grossly intact as tested. SKIN: [place], warm and dry. LABORATORY: Labs and films are as per history of present illness. IMPRESSION: 1. Covid-19 pneumonitis. 2. Hyponatremia. 3. Nausea, vomiting, diarrhea and dehydration. 4. Acute on chronic renal insufficiency. Her baseline creatinine is about 1, admitting creatinine is 1.3. 5. Hypertension. 6. Gastroesophageal reflux disease. PLAN: The patient has been admitted to the hospital. She will continue on the Covid guidelines including Remdesivir, Decadron, Align and Guaifenesin with aggressive pulmonary hygiene including albuterol both p.r.n. and scheduled. She is allergic to Azithromycin and due to her nausea and vomiting with possible gastroenteritis, will start her on Levaquin and Flagyl. She will also have Lovenox for DVT prophylaxis, Protonix for ulcer prophylaxis. Her home medications will be restarted as soon as they are verified. We will also put her on fluid restriction and have given her some fluids. We will recheck her labs in the morning. We will continue to monitor the patient closely and follow as needed. #[id number] [facility]
[2020-04-16] MEDS ORDERED: ALBUTEROL INHALER 64 PUFF/8GM INH PRN (16:40)
[2020-04-16] MEDS ORDERED: DEXAMETHASONE INJ 10 MG/ML VIAL IV ONE (16:41)
[2020-04-16] MEDS ORDERED: REMDESIVIR 200 MG in SODIUM CHLORIDE 0.9% 250ML 250 ML IVPB ONE (16:41)
[2020-04-16] MEDS ORDERED: levoFLOXacin 500MG IV 500 MG in PREMIX BAG 1 BAG IVPB ONE ×2 (16:43→19:30)
[2020-04-16] MEDS ORDERED: SODIUM CHLORIDE 0.9% (FLUSH) 10 ML SYG IV PRN (16:44)
[2020-04-16] MEDS ORDERED: ONDANSETRON INJ 4 MG/2 ML VIAL IV PRN (16:44)
[2020-04-16] MEDS ORDERED: REMDESIVIR IV 100 MG VIAL ONE ×2 (16:53→16:58)
[2020-04-16] MEDS ORDERED: ACETAMINOPHEN 325 MG TAB PO PRN (16:53)
[2020-04-16] MEDS ORDERED: SODIUM CHLORIDE 0.9% 250ML 250 ML ONE (16:53)
[2020-04-16] MEDS ORDERED: DEXAMETHASONE INJ 10 MG/ML VIAL ONE (16:53)
[2020-04-16] MEDS ORDERED: IV SET AND CAP CHANGE INJ INJ SCH (17:00)
[2020-04-16] MEDS ORDERED: ASPIRIN (CHEWABLE) 81 MG TAB ONE (19:03)
[2020-04-16] MEDS ORDERED: levoFLOXacin 500MG IV 100 ML IVPB ONE (19:04)
[2020-04-16] MEDS ORDERED: ENOXAPARIN SODIUM 40 MG/0.4 ML SYG SUBCU ONE (19:04)
[2020-04-16] MEDS: metroNIDAZOLE IV PREMIX 500MG 500 MG in PREMIX BAG 1 BAG IVPB SCH (20:30)
[2020-04-16] MEDS: ENOXAPARIN SODIUM 40 MG/0.4 ML SYG SUBCU SCH (20:31)
[2020-04-16] MEDS: SODIUM CHLORIDE 0.9% (FLUSH) 10 ML SYG IV SCH (20:31)
[2020-04-16] MEDS: ASPIRIN (CHEWABLE) 81 MG TAB PO SCH (20:31)
[2020-04-16] MEDS: ALBUTEROL INHALER 64 PUFF/8GM INH SCH (22:09)
[2020-04-17] MEDS: metroNIDAZOLE IV PREMIX 500MG 500 MG in PREMIX BAG 1 BAG IVPB SCH ×3 (04:11→19:47)
[2020-04-17] MEDS ORDERED: PANTOPRAZOLE SODIUM IV 40 MG VIAL ONE (04:37)
[2020-04-17] MEDS ORDERED: KCL 20 MEQ/NS 1,000 ML IVS ONE (05:37)
[2020-04-17] MEDS: KCL 20 MEQ/NS 1,000 ML IVS PRN ×2 (05:38→21:33)
[2020-04-17] MEDS: PANTOPRAZOLE SODIUM IV 40 MG VIAL IV SCH (05:55)
--- NOTE | 2020-04-17 07:19 | RAD ---
PROCEDURE:XR CHEST 1 VIEW HISTORY:covid COMPARISON: April 16, 2020 FINDINGS: The heart appears unremarkable. There are stable patchy infiltrates. There are no new infiltrates. There is no evidence for effusion or pneumothorax. There are no acute bony or soft tissue abnormalities. IMPRESSION: Stable chest x-ray. Electronically signed by: Vijay Cheung MD 04/17/2020 7:17 AM [facility]
[2020-04-17] MEDS ORDERED: hydroCHLOROthiazide 12.5 MG CAP ONE (09:00)
[2020-04-17] MEDS: hydroCHLOROthiazide 25 MG TAB PO SCH (09:00)
[2020-04-17] MEDS: ALBUTEROL INHALER 64 PUFF/8GM INH SCH ×4 (09:53→21:47)
[2020-04-17] MEDS: MAGNESIUM OXIDE 400 MG TAB PO SCH (10:02)
[2020-04-17] MEDS: LOSARTAN POTASSIUM 100 MG TAB PO SCH (10:02)
[2020-04-17] MEDS: BIFIDOBACTERIUM INFANTIS 4 MG CAP PO SCH ×2 (10:02→20:12)
[2020-04-17] MEDS: DEXAMETHASONE INJ 10 MG/ML VIAL IV SCH (10:03)
[2020-04-17] MEDS: levoFLOXacin 500MG IV 500 MG in PREMIX BAG 1 BAG IVPB SCH (10:48)
[2020-04-17] MEDS: REMDESIVIR 100 MG in SODIUM CHLORIDE 0.9% 250ML 250 ML IVPB SCH (18:00)
[2020-04-17] MEDS: ASPIRIN (CHEWABLE) 81 MG TAB PO SCH (20:12)
[2020-04-17] MEDS: ENOXAPARIN SODIUM 40 MG/0.4 ML SYG SUBCU SCH (20:12)
[2020-04-17] MEDS: SODIUM CHLORIDE 0.9% (FLUSH) 10 ML SYG IV SCH ×2 (21:31)
[2020-04-18] MEDS: metroNIDAZOLE IV PREMIX 500MG 500 MG in PREMIX BAG 1 BAG IVPB SCH ×3 (03:35→19:52)
[2020-04-18] MEDS: PANTOPRAZOLE SODIUM IV 40 MG VIAL IV SCH (06:17)
--- NOTE | 2020-04-18 08:15 | PN ---
SUPERVISING PHYSICIAN: Chaitanya Salinas MD DATE: 04/17/20 SUBJECTIVE: The patient says she is still a little weak, has some mild shortness of breath with exertion but otherwise she feels pretty good. She has had no complaints of anymore intestinal issues, no nausea or vomiting. OBJECTIVE: VITAL SIGNS: Temperature 93, pulse 87, blood pressure 128/74, respirations 18, oxygen saturation 96% on room air. GENERAL: The patient looks to be resting comfortably, she is alert. CHEST: Lung sounds a little diminished, otherwise fairly clear. CARDIAC: Regular rate and rhythm. ABDOMEN: Soft, non-tender, positive bowel sounds. EXTREMITIES: Without edema. NEUROLOGIC: She is alert and oriented x 3. LABORATORY: White count 11,900, hemoglobin 11.5, hematocrit 13.4, platelet count 189,000. Differential does show a left shift. Coagulation studies now showing D-dimer down to 413 from 876 on admission, sodium at 130 but her osmolality is up a little bit to 265. Calcium 8.0, magnesium 2.0. Liver functions all within normal limits. C-reactive protein up to 13.5. Potassium normal at 3.7. MICROBIOLOGY: Urine culture pending. RADIOLOGY: Chest x-ray today per radiology interpretation shows stable chest. ASSESSMENT: 1. Covid-19 pneumonitis. 2. Hyponatremia, etiology uncertain, possibly due to #1. 3. Nausea, vomiting, diarrhea and dehydration improved with fluids. 4. Acute on chronic renal insufficiency now at baseline levels with fluids. 5. Hypertension. 6. Gastroesophageal reflux disease. PLAN: Will continue current plan of care with Remdesivir, Decadron, Align, guaifenesin, aggressive pulmonary hygiene. She does remain on Levaquin due to the fact she is allergic azithromycin. She was on Flagyl but I stopped this. I think she will do fine just on Levaquin. I anticipate we will be able to discharge either tomorrow but given the fact she has a significant hyponatremia and urine culture still pending, we may end up discharging on Sunday but will continue with fluid restrictions and recheck her labs in the morning. Until then, we will continue to monitor and treat as needed. #[id number] [facility]TDD
[2020-04-18] MEDS ORDERED: hydroCHLOROthiazide 12.5 MG CAP ONE (09:39)
[2020-04-18] MEDS ORDERED: BIFIDOBACTERIUM INFANTIS 4 MG CAP ONE ×2 (09:39→19:41)
[2020-04-18] MEDS: ALBUTEROL INHALER 64 PUFF/8GM INH SCH ×4 (09:48→21:01)
[2020-04-18] MEDS: LOSARTAN POTASSIUM 100 MG TAB PO SCH (10:59)
[2020-04-18] MEDS: MAGNESIUM OXIDE 400 MG TAB PO SCH (10:59)
[2020-04-18] MEDS: hydroCHLOROthiazide 25 MG TAB PO SCH (10:59)
[2020-04-18] MEDS: levoFLOXacin 500MG IV 500 MG in PREMIX BAG 1 BAG IVPB SCH (11:00)
[2020-04-18] MEDS: SODIUM CHLORIDE 0.9% (FLUSH) 10 ML SYG IV SCH ×2 (11:00→20:27)
[2020-04-18] MEDS: DEXAMETHASONE INJ 10 MG/ML VIAL IV SCH (11:00)
[2020-04-18] MEDS: BIFIDOBACTERIUM INFANTIS 4 MG CAP PO SCH ×2 (11:00→20:27)
[2020-04-18] MEDS: REMDESIVIR 100 MG in SODIUM CHLORIDE 0.9% 250ML 250 ML IVPB SCH (17:44)
[2020-04-18] MEDS: KCL 20 MEQ/NS 1,000 ML IVS PRN (17:45)
--- NOTE | 2020-04-18 19:45 | PN ---
SUPERVISING PHYSICIAN: Chaitanya Salinas MD DATE: 04/18/20 SUBJECTIVE: The patient has been doing okay. She is actually able to come off oxygen when in bed, but she does feel short of breath with ambulation. OBJECTIVE: VITAL SIGNS: Temperature 97.6. Oxygen saturation is actually 95% on room air at rest. Blood pressure 113/73. GENERAL: The patient looks to be resting comfortably, she is alert. CHEST: Lung sounds a little diminished, otherwise fairly clear. CARDIAC: Regular rate and rhythm. ABDOMEN: Soft, nontender, positive bowel sounds. EXTREMITIES: Without edema. NEUROLOGIC: She is alert and oriented x 3. LABORATORY: White count now normalized to 8,400, left shift is resolved. Lymphocytes remain low. Chemistries show potassium 3.4, otherwise electrolytes within normal limits. Liver functions are within normal limits. C-reactive protein now is down to 1.7 compared to 13.5. D-dimer did go up from 413 to 1820. ASSESSMENT: 1. COVID-19 pneumonitis. 2. Hyponatremia, etiology uncertain, possibly due to #1. 3. Nausea, vomiting, diarrhea and dehydration improved with fluids. 4. Acute on chronic renal insufficiency now at baseline levels with fluids. 5. Hypertension. 6. Gastroesophageal reflux disease. PLAN: Will continue current plan of care with Decadron, Levaquin and Remdesivir. I anticipate she will probably go home tomorrow. We need to do an ambulation study to ensure she does not need oxygen. I do not think she will need that, but we will fully assess in the morning. I regards to her D-dimer elevation, we need to consider possibly going home on some Eliquis just because it did elevate from 413 up to 1820. Until the patient can transition to outpatient management, we will continue to monitor and treat as needed. #[id number] [facility]TDD
[2020-04-18] MEDS: ASPIRIN (CHEWABLE) 81 MG TAB PO SCH (20:27)
[2020-04-18] MEDS: ENOXAPARIN SODIUM 40 MG/0.4 ML SYG SUBCU SCH (20:27)
[2020-04-19] MEDS: PANTOPRAZOLE SODIUM IV 40 MG VIAL IV SCH (05:53)
[2020-04-19] MEDS ORDERED: hydroCHLOROthiazide 12.5 MG CAP ONE (07:21)
[2020-04-19] MEDS: ALBUTEROL INHALER 64 PUFF/8GM INH SCH ×2 (08:23→13:48)
[2020-04-19] MEDS: DEXAMETHASONE INJ 10 MG/ML VIAL IV SCH (09:29)
[2020-04-19] MEDS: MAGNESIUM OXIDE 400 MG TAB PO SCH (09:30)
[2020-04-19] MEDS: hydroCHLOROthiazide 25 MG TAB PO SCH (09:30)
[2020-04-19] MEDS: LOSARTAN POTASSIUM 100 MG TAB PO SCH (09:30)
[2020-04-19] MEDS: levoFLOXacin 500MG IV 500 MG in PREMIX BAG 1 BAG IVPB SCH (09:30)
[2020-04-19] MEDS: SODIUM CHLORIDE 0.9% (FLUSH) 10 ML SYG IV SCH (09:31)
[2020-04-19] MEDS: BIFIDOBACTERIUM INFANTIS 4 MG CAP PO SCH (09:31)
[2020-04-19] MEDS ORDERED: BIFIDOBACTERIUM INFANTIS 4 MG CAP ONE (09:40)
[2020-04-19 12:40] VITALS: BP 110/73; TEMP 98.3; O2SAT 96
[2020-04-20] MEDS ORDERED: PANTOPRAZOLE SODIUM TAB 40 MG PO SCH (06:30)
--- NOTE | 2020-04-20 19:46 | DS ---
SUPERVISING PHYSICIAN: Sanju Espino MD DISCHARGE DIAGNOSIS: 1. COVID-19 pneumonitis. 2. Hyponatremia, etiology uncertain, possibly due to #1. 3. Nausea, vomiting, diarrhea and dehydration, improved with fluids. 4. Acute on chronic renal insufficiency, now at baseline levels. 5. Hypertension. 6. Gastroesophageal reflux disease. HISTORY OF PRESENT ILLNESS: This is a 70-year-old female patient who presented to the Emergency Room with chief complaint of nausea and vomiting. She had been diagnosed with COVID-19 about a week prior to her admission. She had initially been set up for a monoclonal antibody infusion. She had had a poor appetite with nausea and vomiting and intermittent diarrhea. During her infusion, she became suddenly extremely nauseated and had several bouts of emesis. She was sent to the Emergency Room. She was given some Phenergan and fluids. Her initial vital signs were temperature of 99, heart rate 94, blood pressure 149/79, respiratory rate 24, O2 saturation 95% on room air. Laboratory studies showed WBC 11.2 with hemoglobin 12.4, hematocrit 34.8. She had a left shift on her differential. D-dimer 876. Sodium low at 124, potassium 3.4, chloride 88, BUN 25, creatinine 1.3. Serum osmolality 254.9, magnesium 1.7, C-reactive protein 3.7, BNP 163. Chest x-ray showed normal size cardiac silhouette, partial and calcified aorta, perihilar fullness and airspace opacities within the left mid lung and both lung bases, probably represents pulmonary edema versus atypical pneumonia or viral obstruction. No pleural effusion or pneumothorax and thoracic spondylosis. She was also given some fluids and admitted to the hospital for COVID-19 as well as hyponatremia. HOSPITAL COURSE: The patient was placed on COVID-19 guidelines including Remdesivir, Decadron, Align, guaifenesin. She was given Levaquin and Flagyl. She was given Lovenox for DVT prophylaxis and Protonix for ulcer prophylaxis. Her home medications were restarted. Due to her hyponatremia, she was placed on fluid restrictions. Her lab was monitored closely. She initially was very weak and had some mild shortness of breath, but she progressively improved. Initially, she was thought to have some gastroenteritis, but her GI symptoms improved, so her Flagyl was discontinued and she was continued on Levaquin. Her fluid restrictions were continued. Her lab results normalized. Her vital signs were stable. She was actually able to wean off of her oxygen. She will be discharged home today in stable condition. LABORATORY: WBCs 11,200 and are now 8,400. Hemoglobin and hematocrit are stable at 14.8 and 42.2. Initially she had a left shift on differential that is now normalized. D-dimer was 876 on admission and went up as high as 1,820 and today is 264. Sodium 124 on admission and went up as high as 137. Today, it is 132. Potassium low at 3.4 on admission and today is 3.4. She required potassium supplementation several times. Chloride is stable at 101. BUN 25, creatinine 1.3 on admission and are now 20 and 0.87. Serum osmolality improved to 266.9. Magnesium low at 1.7 and is now 2.2 after supplementation. Creatinine kinase 244, C-reactive protein was 3.7 and went up to 13.5 and is now 1.7. Urinalysis was unremarkable other than a trace of urine blood and a small amount of urine leukocyte esterase. MICROBIOLOGY: Her final urine culture showed on growth after 48 hours. RADIOLOGY: Final chest x-ray showed stable chest x-ray. DISCHARGE PLAN: The patient will be discharged home in stable condition. She is to resume her previous diet and increase her activity as tolerated. She has a followup appointment with Dr. Fraser on 04/26/20 at 3:45 PM via telehealth. She was cautioned to not overdo her fluid intake. It is recommended that Dr. Fraser do a BMP at her followup. In addition to her routine home medications, she will be sent home with a prescription of Levaquin and dexamethasone. She is also to continue on Align and her albuterol inhaler. She is to return to the hospital or followup with Dr. Fraser for any problems or complications. DISCHARGE MEDICATIONS: 1. Multivitamins. 2. Fish oil. 3. Calcium with vitamin D. 4. Aspirin. 5. Zantac. 6. [id number]. 7. Magnesium oxide. 8. Telmisartan. 9. Hydrochlorothiazide. 10. Omeprazole. 11. Potassium. 12. Align. 13. Dexamethasone. 14. Levaquin. 15. Albuterol. #[id number] [facility]
== END 2020-04-19 16:20 | disposition home or self-care (01) | DRG 177 ==
LOC: ER 10:27 → OBSVTOIN 13:30 → MS 13:30
PROVIDERS: ADMIT Nurse Practitioner Acute Care; ATTEND Nurse Practitioner Acute Care
PROC: XW033E5 Introduction of Remdesivir Anti-infective into Peripheral Vein, Percutaneous Approach, New Technology Group 5 (ICD-10-PCS; principal; 2020-04-16)
DX: U07.1 COVID-19 (principal); J12.89 Other viral pneumonia; E87.1 Hypo-osmolality and hyponatremia; E86.0 Dehydration; E83.42 Hypomagnesemia; N28.9 Disorder of kidney and ureter, unspecified; N18.9 Chronic kidney disease, unspecified; I12.9 Hypertensive chronic kidney disease with stage 1 through stage 4 chronic kidney disease, or unspecified chronic kidney disease; K21.9 Gastro-esophageal reflux disease without esophagitis; G47.33 Obstructive sleep apnea (adult) (pediatric); E78.5 Hyperlipidemia, unspecified; Z88.1 Allergy status to other antibiotic agents; Z79.82 Long term (current) use of aspirin; Z79.899 Other long term (current) drug therapy

== ENCOUNTER → 2020-05-10 | Outpatient (CLI) | payer MEDICARE | LOC: GMAL 12:00 | PROVIDERS: ATTEND Family Medicine | DX: E83.42 Hypomagnesemia (principal); Z79.899 Other long term (current) drug therapy; E78.2 Mixed hyperlipidemia; Z82.49 Family history of ischemic heart disease and other diseases of the circulatory system ==

== ENCOUNTER → 2020-06-16 | Outpatient (CLI) | payer MEDICARE ==
--- NOTE | 2020-06-16 20:32 | MRI ---
EXAM DESCRIPTION: Lumbar Spine w/o Contrast : Magnetic Resonance Imaging. CLINICAL HISTORY: LOW BACK PAIN COMPARISON: MRI scan lumbar spine without contrast November 2014. Technically difficult study due to patient large body habitus. TECHNIQUE: Multiplanar, multiple standard sequences, non contrast MRI, lumbar spine. FINDINGS: L5-S1: The disc is well visualized on axial T2 series 501, image 3. Moderate disc space loss and moderate type II endplate reactive changes. Anterior disc bulging and spurs. Minimal retrolisthesis. Posterior midline disc bulge and small protrusion abutting the thecal sac in the midline and also narrowing the bilateral subarticular recesses. Hypertrophic changes in the posterior flavum ligaments and bilateral facet joints (canal elements). AP canal diameter 7 mm. Borderline right foraminal stenosis and moderate to severe left foraminal narrowing. Perineural cyst in the right S1-S2 foramen. No significant change since the prior study. L4-L5: Disc desiccation with disc space maintained. Grade 1 anterolisthesis 3 mm. Posterior right side bulge 4 mm abutting the right subarticular recess. Hypertrophic changes in the canal elements. AP canal diameter 7 mm. Mild bilateral foraminal narrowing. Circumscribed hyperintense T1 and T2 hemangioma in the left L4 vertebral body is stable. L3-L4: Disc desiccation and minimal disc space loss. Minimal anterior bulging and endplate ridging. Posterior broad-based disc bulge encroaching on the thecal sac and the bilateral subarticular recesses. Bilateral hypertrophy of the canal elements. AP canal diameter is 7 mm. Mild right foraminal narrowing. Mild endplate reactive changes to the left of midline with disc protrusion into the left subarticular recess encroaching on the left L4 nerve. This protrusion also encroaching on the left foramen abutting the left L3 nerve. This has progressed since the prior study. L2-L3: Disc desiccation and minimal disc space loss. Minimal bulging. Mild hypertrophy of the canal elements. AP canal diameter 11 mm. Mild bilateral canal narrowing. Minimal anterior bulging and endplate ridging. L1-L2: Disc desiccation with anterior bulging and endplate ridging. No significant posterior bulge. Minimal hypertrophy of the canal elements. AP canal diameter 12 mm. Bilateral foramina are patent. Conus terminates at this level. Stable since the prior study. T12-L1: Normal seen on the disc at this space maintained. Anterior bulging and endplate ridging. Minimal hypertrophy of the canal elements. Canal and foramina are patent. No change from the prior study. No scoliosis Paravertebral soft tissues muscle atrophy.. Distal cord normal signal and caliber. Inhomogeneous marrow signal in the remaining vertebral bodies and the posterior elements. Vertebral bodies are not compressed at any level. IMPRESSION: 1. Spondylosis at multiple levels with disc desiccation. Anterior bulging and endplate ridging at multiple levels. Disc bulging at multiple levels. Hypertrophic posterior flavum ligaments and hypertrophic arthrosis of the facet joints at multiple levels. 2. Left posterior L3-4 disc protrusion into the left subarticular recess encroaching on the left IV nerve. Encroaching on the left foramen and the left L3 nerve. Mild to moderate canal stenosis. 3. Significant disc space loss at L5-S1 with endplate spondylosis and disc spur complex encroaching on the bilateral foramina with right foraminal stenosis and severe left foraminal narrowing. Also mild to moderate canal stenosis. Stable since the prior study. Multifactorial mild to moderate canal stenosis at L4-L5 with no interval change. 4. Please refer to FINDINGS for discussion of results at specific disc space levels. Electronically signed by: Wero Gonsales MD 06/16/2020 8:31 PM [facility]
== END ==
LOC: MRI 07:53
PROVIDERS: ATTEND Family Medicine
DX: M47.896 Other spondylosis, lumbar region (principal); M47.897 Other spondylosis, lumbosacral region; M51.36 Other intervertebral disc degeneration, lumbar region; M51.86 Other intervertebral disc disorders, lumbar region; M51.26 Other intervertebral disc displacement, lumbar region; M48.062 Spinal stenosis, lumbar region with neurogenic claudication